=== PATIENT | female | born 1980 | race American Indian/Alaskan Native ===

== ENCOUNTER 2017-06-25 20:07 | Emergency (ER) | payer SELFPAY ==
--- NOTE | 2017-06-25 22:52 | Emergency Department Report ---
ED Upper Extremity Inj HPI - General Chief Complaint: Burn/Smoke Inhalation Stated Complaint: CHEMICAL BURN Time Seen by Provider: 06/25/17 22:40 Source: patient Mode of arrival: Ambulatory Limitations: No Limitations - History of Present Illness Initial Comments: This is a 36-year-old female nontoxic, well nourished in appearance, no acute signs of distress presents to the ED complaining of left hand swelling. Patient stated [place] and landed on patient's right hand that occurred earlier today 2 hours prior to arrival. Patient stated immediately she developed a burning sensation and swelling. Patient denies direct blow or trauma to extremity. Patient denies any blisters formation or pain. Denies decreased range of motion. Denies pus or drainage. Denies numbness, tingling, fever, chills, headache, stiff neck, nausea or vomiting. Patient denies any past medical history. Allergies to penicillin. MD Complaint: Injury to:: left, hand -: Gradual, This evening Other Extremity Injury: Hand: Left Other Injuries: none Place: work Severity scale (0 -10): 0 Worsens With: none Context: other (waist fuel) Associated Symptoms: denies other symptoms. denies: weakness, numbness, neck pain, suspects foreign body, nausea/vomiting, heard/felt popping sensat - Related Data Previous Rx's Medication Instructions Recorded Last Taken Type Ibuprofen [Motrin 600 MG tab] 600 mg PO Q8H PRN #30 tablet 06/25/17 Unknown Rx predniSONE [Deltasone] 20 mg PO BID #10 tab 06/25/17 Unknown Rx Allergies Allergy/AdvReac Type Severity Reaction Status Date / Time Penicillins Allergy Swelling Verified 06/25/17 20:17 ED Review of Systems ROS: Stated complaint: CHEMICAL BURN Other details as noted in HPI Constitutional: denies: chills, fever Eyes: denies: eye pain, eye discharge, vision change ENT: denies: ear pain, throat pain Respiratory: denies: cough, shortness of breath, wheezing Cardiovascular: denies: chest pain, palpitations Endocrine: no symptoms reported Gastrointestinal: denies: abdominal pain, nausea, diarrhea Genitourinary: denies: urgency, dysuria, discharge Musculoskeletal: denies: back pain, joint swelling, arthralgia Skin: denies: rash, lesions Neurological: denies: headache, weakness, paresthesias Psychiatric: denies: anxiety, depression Hematological/Lymphatic: denies: easy bleeding, easy bruising ED Past Medical Hx - Past Medical History Previous Medical History?: Yes Additional medical history: "heart beat irregular" - Surgical History Past Surgical History?: No - Social History Smoking Status: Current Every Day Smoker Substance Use Type: Alcohol - Medications Home Medications: Home Medications Medication Instructions Recorded Confirmed Last Taken Type Ibuprofen [Motrin 600 MG tab] 600 mg PO Q8H PRN #30 tablet 06/25/17 Unknown Rx predniSONE [Deltasone] 20 mg PO BID #10 tab 06/25/17 Unknown Rx ED Physical Exam - General Limitations: No Limitations General appearance: alert, in no apparent distress - Head Head exam: Present: atraumatic, normocephalic, normal inspection - Eye Eye exam: Present: normal appearance, PERRL, EOMI. Absent: scleral icterus, conjunctival injection, nystagmus, periorbital swelling, periorbital tenderness Pupils: Present: normal accommodation - ENT ENT exam: Present: normal exam, normal orophraynx, mucous membranes moist, TM's normal bilaterally, normal external ear exam - Neck Neck exam: Present: normal inspection, full ROM. Absent: tenderness, meningismus, lymphadenopathy, thyromegaly - Respiratory Respiratory exam: Present: normal lung sounds bilaterally. Absent: respiratory distress, wheezes, rales, rhonchi, stridor, chest wall tenderness, accessory muscle use, decreased breath sounds, prolonged expiratory - Cardiovascular Cardiovascular Exam: Present: regular rate, normal rhythm, normal heart sounds. Absent: bradycardia, tachycardia, irregular rhythm, systolic murmur, diastolic murmur, rubs, gallop - GI/Abdominal GI/Abdominal exam: Present: soft, normal bowel sounds. Absent: distended, tenderness, guarding, rebound, rigid, diminished bowel sounds - Rectal Rectal exam: Present: deferred - Extremities Exam Extremities exam: Present: normal inspection, full ROM, normal capillary refill. Absent: tenderness, pedal edema, joint swelling, calf tenderness - Expanded Upper Extremity Exam Left General: Present: normal inspection Shoulder Exam: Present: normal inspection, full ROM. Absent: tenderness, swelling Upper Arm exam: Present: normal inspection, full ROM. Absent: tenderness, swelling Elbow exam: Present: normal inspection, full ROM. Absent: tenderness, swelling Forearm Wrist exam: Present: normal inspection, full ROM. Absent: tenderness, swelling, abrasion Hand Wrist exam: Present: normal inspection, full ROM, swelling. Absent: tenderness, abrasion, laceration, ecchymosis, deformity, crepidus, dislocation, erythema, amputation, nail avulsion, subungual hematoma Hand L/R Back: 1 - Slight swelling. Neuro motor exam: Present: wrist extension intact, thumb opposition intact, thumb IP flexion intact, thumb adduction intact, fingers 2-5 abduction intact Neurosensory exam: Present: 2-point discrimination, radial nerve intact, ulnar nerve intact, median nerve intact Vascular: Present: vascular compromise, normal capillary refill, radial pulse, brachial pulse, ulnar pulse - Back Exam Back exam: Present: normal inspection, full ROM. Absent: tenderness, CVA tenderness (R), CVA tenderness (L), muscle spasm, paraspinal tenderness, vertebral tenderness, rash noted - Neurological Exam Neurological exam: Present: alert, oriented X3, CN II-XII intact, normal gait, reflexes normal - Psychiatric Psychiatric exam: Present: normal affect, normal mood - Skin Skin exam: Present: warm, dry, intact, normal color. Absent: rash - Other Other exam information: No redness or pus or drainage noted. Nontender to touch. No swelling saline as noted. Normal range of motion of the joint, hand, and digits. Examination consistent of chemical skin irritation/contact dermatitis. ED Course Vital Signs 06/25/17 20:12 Temperature 99 F Pulse Rate 74 Respiratory 18 Rate Blood Pressure 138/79 O2 Sat by Pulse 99 Oximetry - Reevaluation(s) Reevaluation #1: 06/25/17 22:53 Patient is speaking full sentences with no signs of distress. - Consultations Consultation #1: 06/25/17 22:53 Dr. Patiño was consulted by history, examination and findings and examined patient. Agrees to the plan of care in the ED as well as discharge instructions. ED Medical Decision Making - Medical Decision Making 36-year-old female that presents with local irritation of a chemical. There is no signs of cellulitis, pus or drainage. No induration. No fluctuance. Nontender to touch. Examination consistent of a contact dermatitis/irritation. Patient be treated with prednisone and ibuprofen in a discharge. Patient received ice pack in the ED. This was also instructed to rest, elevate, ice extremity. She was instructed to follow-up with a primary care doctor in 3-5 days or if symptoms such as pus, drainage, or worsening symptoms return to emergency room as soon as possible. At time time of discharge, the patient does not seem toxic or ill in appearance. No acute signs of distress noted. Patient agrees to discharge treatment plan of care. No further questions noted by the patient. Critical care attestation.: If time is entered above; I have spent that time in minutes in the direct care of this critically ill patient, excluding procedure time. ED Disposition Clinical Impression: Skin irritation Contact dermatitis Qualifiers: Contact dermatitis type: unspecified Contact dermatitis trigger: other chemical product Qualified Code(s): L25.3 - Unspecified contact dermatitis due to other chemical products Disposition: DC- TO HOME OR SELFCARE Is pt being admited?: No Does the pt Need Aspirin: No Condition: Stable Instructions: Ibuprofen (By mouth), Prednisone (By mouth), Contact Dermatitis ( ED) Additional Instructions: Follow-up with a primary care doctor in 3-5 days or if symptoms such as pus, drainage, or worsening symptoms return to emergency room as soon as possible. Prescriptions: Ibuprofen [Motrin 600 MG tab] 600 mg PO Q8H PRN #30 tablet PRN Reason: Pain predniSONE [Deltasone] 20 mg PO BID #10 tab Referrals: [facility] [place] [Outside] - 3-5 Days [facility] [Outside] - 3-5 Days MAGDALENE ANDERSON MD [Staff Physician] - 3-5 Days PRIMARY CAREMD [Primary Care Provider] - 3-5 Days Forms: Work/School Release Form(ED)
[2017-06-25] MEDS ORDERED: MOTRIN PO ONE (22:57)
[2017-06-26 01:50] VITALS: BP 128/83
== END 2017-06-26 01:53 | disposition home or self-care (01) ==
LOC: ED 20:07
DX: L25.8 Unspecified contact dermatitis due to other agents (principal); F17.200 Nicotine dependence, unspecified, uncomplicated; Z88.0 Allergy status to penicillin
CPT/HCPCS: 99282

== ENCOUNTER 2017-10-25 12:58 | Emergency (ER) | payer OTHER ==
[2017-10-25 13:21] VITALS: BP 134/90
[2017-10-25 14:15] LABS: Basophils % (Auto) 0.2 % (0.0-1.8); Eosinophils % (Auto) 0.1 % (0.0-4.3); Hematocrit 45.8 % (30.3-42.9); Hemoglobin 15.2 gm/dl (10.1-14.3); Lymphocytes # (Auto) 0.8 K/mm3 (1.2-5.4); Lymphocytes % (Auto) 8.2 % (13.4-35.0); Mean Corpuscular HGB Conc 33 % (30-34); Mean Corpuscular Hemoglobin 32 pg (28-32); Mean Corpuscular Volume 95 fl (79-97); Platelet Count 255 K/mm3 (140-440); Red Blood Count 4.79 M/mm3 (3.65-5.03); Red Cell Distribution Width 14.5 % (13.2-15.2)
[2017-10-25 14:38] LABS: BUN/Creatinine Ratio 9; Blood Urea Nitrogen 8 mg/dL (7-17); Calcium 9.3 mg/dL (8.4-10.2); Hemolysis Index 62
== END 2017-10-25 14:00 | disposition left against medical advice (07) ==
LOC: ED 12:58
DX: R07.9 Chest pain, unspecified (principal); Z53.21 Procedure and treatment not carried out due to patient leaving prior to being seen by health care provider
CPT/HCPCS: 36415; 80048; 84484; 85025; 93005; 93010